=== PATIENT | female | born 1985 | race Caucasian/White ===

== ENCOUNTER → 2023-12-27 09:30 | Outpatient (REF) | payer BC, SELFPAY | LOC: RAD 09:30 | PROVIDERS: ATTENDING PHYSICIAN Obstetrics & Gynecology; FAMILY PHYSICIAN Nurse Practitioner | DX: N92.1 Excessive and frequent menstruation with irregular cycle (principal); D25.9 Leiomyoma of uterus, unspecified | CPT/HCPCS: 76830; 76856 ==

== ENCOUNTER → 2024-03-05 18:57 | Outpatient (REF) | payer BC, SELFPAY | LOC: WDC 18:57 | PROVIDERS: ATTENDING PHYSICIAN Obstetrics & Gynecology; FAMILY PHYSICIAN Nurse Practitioner | DX: Z12.31 Encounter for screening mammogram for malignant neoplasm of breast (principal) | CPT/HCPCS: 77063; 77067 ==